=== PATIENT | female | born 1960 | race African-American/Black ===

== ENCOUNTER 2018-07-11 14:51 | Inpatient (IN) | payer OTHER ==
[~2018-07-11] VITALS: Ht 165.1 cm; Wt 94.8 kg
[2018-07-11] MEDS ORDERED: AMLO10TA80 PO (15:01)
[2018-07-11] MEDS ORDERED: ATEN100T PO (15:01)
[2018-07-11] MEDS ORDERED: AMLODIPINE 10MG TABLET PO ONE (15:15)
[2018-07-11] MEDS ORDERED: ATENOLOL 100 MG TABLET PO ONE (15:15)
[2018-07-11 15:45] LABS: BASOPHILS % 1.1 % (0.0-2.0); EOSINOPHILS % 3.7 % (0.0-5.0); HEMATOCRIT. 44.8 % (36.0-48.0); HEMOGLOBIN. 14.9 g/dL (12.0-16.0); LYMPHOCYTES % 31.4 % (20.0-50.0); MEAN CORPUSCULAR HEMOGLOBIN 28.7 pg (28.0-32.0); MEAN CORPUSCULAR VOLUME 86.4 fL (81.0-99.0); MEAN PLATELET VOLUME 9.8 fl (7.4-10.4); MONOCYTES % 5.8 % (2.0-8.0); PLATELET 350 x1000/uL (130-400); RED BLOOD CELL COUNT 5.19 mill/uL (4.2-5.4); RED CELL DISTRIBUTION WIDTH 15.1 % (11.6-14.6)
[2018-07-11 15:51] LABS: CHLORIDE 106 mEq/L (98-107); INR 1.1
[2018-07-11 15:55] LABS: ETHANOL BLOOD < 10 mg/dL
[2018-07-11 15:58] LABS: LDL CHOLESTEROL 152 mg/dL (5-100)
[2018-07-11 16:00] LABS: CREATINE KINASE 119 IU/L (26-192)
[2018-07-11] MEDS ORDERED: SODIUM CHLORIDE 0.9% 1,000 ML IV ONE (17:03)
[2018-07-11] MEDS ORDERED: POTASSIUM CHLORIDE 20MEQ TABLET SR PO ONE (17:15)
[2018-07-11] MEDS ORDERED: ONDANSETRON HCL 4MG/2ML INJ IV PRN (17:15)
[2018-07-11] MEDS ORDERED: CLONIDINE 0.1MG TABLET PO PRN (17:15)
[2018-07-11] MEDS ORDERED: ACETAMINOPHEN 325MG TABLET PO PRN (17:15)
[2018-07-11 18:16] LABS: CLARITY URINE CLOUDY (CLEAR); COLOR URINE YELLOW (YELLOW); KETONES URINE NEGATIVE (NEGATIVE); LEUKOCYTE ESTERASE URINE NEGATIVE (NEGATIVE); NITRITE URINE NEGATIVE (NEGATIVE); OCCULT BLOOD URINE NEGATIVE (NEGATIVE); PH URINE 6.5 (4.5-8.0); PROTEIN URINE 3+ (NEGATIVE); SPECIFIC GRAVITY URINE 1.014 (1.005-1.030); UROBILINOGEN URINE 0.2 E.U./dL (0.2-1.0)
[2018-07-11 18:31] LABS: *AMPHETAMINES SCREEN URINE NEGATIVE (NEGATIVE); *BARBITURATES SCREEN URINE NEGATIVE (NEGATIVE); *BENZODIAZEPINES SCREEN URINE NEGATIVE (NEGATIVE); *COCAINE SCREEN URINE NEGATIVE (NEGATIVE)
[2018-07-11 18:32] LABS: CANNABINOID URINE SCREEN NEGATIVE (NEGATIVE); METHADONE URINE SCREEN NEGATIVE (NEGATIVE); OPIATES URINE SCREEN NEGATIVE (NEGATIVE); PHENCYCLIDINE URINE SCREEN NEGATIVE (NEGATIVE)
[2018-07-11 21:00] VITALS: BP 148/92
[2018-07-12] VITALS: BP 139/78
[2018-07-12 04:00] VITALS: BP 149/40
[2018-07-12 08:00] VITALS: BP_SYST 136; BP_SYST 144; BP_DIAS 84; BP_DIAS 92
[2018-07-12 08:09] LABS: BASOPHILS % 0.6 % (0.0-2.0); EOSINOPHILS % 5.8 % (0.0-5.0); HEMATOCRIT. 43.8 % (36.0-48.0); HEMOGLOBIN. 14.4 g/dL (12.0-16.0); LYMPHOCYTES % 25.9 % (20.0-50.0); MEAN CORPUSCULAR HEMOGLOBIN 28.4 pg (28.0-32.0); MEAN CORPUSCULAR VOLUME 86.7 fL (81.0-99.0); MEAN PLATELET VOLUME 9.8 fl (7.4-10.4); MONOCYTES % 4.3 % (2.0-8.0); NEUTROPHILS % 63.4 % (40.0-76.0); PLATELET 312 x1000/uL (130-400); RED BLOOD CELL COUNT 5.05 mill/uL (4.2-5.4); RED CELL DISTRIBUTION WIDTH 15.2 % (11.6-14.6)
[2018-07-12 08:49] LABS: CHLORIDE 108 mEq/L (98-107)
[2018-07-12] MEDS ORDERED: AMLODIPINE 5MG TABLET PO SCH (09:00)
[2018-07-12] MEDS ORDERED: LOSARTAN POTASSIUM 50 MG TABLET PO SCH (09:00)
[2018-07-12] MEDS ORDERED: ENOXAPARIN 30MG/0.3ML SYR SUBCUT SCH (09:00)
[2018-07-12 12:00] VITALS: BP 144/92
[2018-07-12] MEDS ORDERED: LACTULOSE 20G/30ML UDC PO NR (13:30)
[2018-07-12 14:20] VITALS: BP 144/92
[2018-07-12] MEDS ORDERED: ATORVASTATIN CALCIUM 40MG TABLET PO SCH (21:00)
== END 2018-07-12 15:20 | disposition home or self-care (01) | DRG 69 ==
LOC: ER 14:51 → 8WST 17:03 → EDBEDREQ 17:07 → ENRESERV 18:31
PROVIDERS: ADMIT Internal Medicine; ATTEND Internal Medicine
DX: G45.9 Transient cerebral ischemic attack, unspecified (principal); I16.0 Hypertensive urgency; I10 Essential (primary) hypertension; E87.6 Hypokalemia; E78.5 Hyperlipidemia, unspecified; E66.9 Obesity, unspecified; Z68.34 Body mass index [BMI] 34.0-34.9, adult
CPT/HCPCS: 36415; 70551; 71045; 80048; 80061; 80305; 82550; 82962; 83721; 83735; 83880; 84443; 84484; 93005; 97162; 99285; G0482; J1650; J7030